=== PATIENT | female | born 1975 | race Caucasian/White ===

== ENCOUNTER → 2016-10-25 | Outpatient (CLI) | payer MEDICARE, OTHER ==
[2016-03-15 15:58] VITALS: BP 122/79
--- NOTE | 2016-10-25 16:31 | KCIC ---
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 History of bunion surgery. Pain and swelling for one month. Patient fell out of a chair with diffuse pain since then. TECHNIQUE: Routine multiplanar sequences are obtained. COMPARISON: None FINDINGS: Surgical screw artifact at the first metatarsal head and distal shaft. This does obscure visualization of the area. However, no superimposed evidence to specifically suggest osteonecrosis. No acute bone marrow edema, acute fracture or bone collapse. The other visualized bones are unremarkable. No significant joint effusion. Lisfranc ligament complex is intact as is tarsometatarsal alignment. No acute tendon rupture. No significant tendon sheath fluid. IMPRESSION: 1. Distal first metatarsal is partially obscured by surgical artifact. However, no specific secondary or indirect findings to suggest first metatarsal head osteonecrosis. 2. No acute findings. Electronically signed by: Jose Acosta MD (10/25/2016 4:28 PM)
== END | disposition home or self-care (01) ==
LOC: KCIC MRI 13:07
PROVIDERS: ATTEND Podiatrist Foot & Ankle Surgery
DX: M87.051 Idiopathic aseptic necrosis of right femur (principal)
CPT/HCPCS: 73718

== ENCOUNTER 2016-12-27 15:24 | Emergency (ER) | payer MEDICARE, MEDICAID ==
[~2016-12-27] VITALS: Ht 167.6 cm; Wt 90.7 kg
--- NOTE | 2016-12-27 16:01 | EKG ---
[facility] [address] [place] [address] Test Date: 2016-12-27 Test Time: 15:45:04 Pat Name: BERTHA GREEN Department: Room: Gender: F [employer]: : 1975 Requested By: KENDALL DOW Order Number: [id number] Reading MD: Mary Brady Measurements Intervals [place] Rate: 71 P: 26 FL: 154 QRS: 13 QRSD: 70 T: 22 QT: 362 QTc: 398 Interpretive Statements SINUS RHYTHM NORMAL ECG Electronically Signed On 12-27-2016 20:51:03 CDT by Mary Brady
[2016-12-27 16:09] LABS: BASO # 0.1 x10^3/uL (0.0-0.2); BASO % 1 % (0-3); EOS % 0 % (0-3); HEMATOCRIT 36.6 % (36.0-47.0); HEMOGLOBIN 11.9 g/dL (12.0-15.5); LYMPH # 1.8 x10^3/uL (1.0-4.8); LYMPH % 16 % (24-48); MEAN CORPUSCULAR HEMOGLOBIN 28 pg (25-35); MEAN CORPUSCULAR HGB CONC 33 g/dL (31-37); MEAN CORPUSCULAR VOLUME 85 fL (79-100); MONO % 3 % (0-9); NEUT % 79 % (31-73); PLATELET COUNT 227 x10^3/uL (140-400); RED BLOOD COUNT 4.33 x10^6/uL (3.50-5.40); WHITE BLOOD COUNT 10.8 x10^3/uL (4.0-11.0)
[2016-12-27 16:21] LABS: CALCIUM 8.2 mg/dL (8.5-10.1); CREATININE 0.7 mg/dL (0.6-1.0); GFR 91.8; POTASSIUM 4.4 mmol/L (3.5-5.1)
[2016-12-27 16:26] LABS: ALBUMIN 3.5 g/dL (3.4-5.0); ALBUMIN/GLOBULIN RATIO 0.9 (1.0-1.7); TOTAL BILIRUBIN 0.3 mg/dL (0.2-1.0); TOTAL PROTEIN 7.2 g/dL (6.4-8.2)
[2016-12-27 16:46] LABS: BILIRUBIN,URINE NEGATIVE (NEG); GLUCOSE,URINE NEGATIVE (NEG); NITRITE,URINE NEGATIVE (NEG); PROTEIN,URINE NEGATIVE (NEG-TRACE); UROBILINOGEN,URINE 0.2 mg/dL (0.2 mg/dL)
[2016-12-27 16:51] LABS: NEG OBC UR NEG; POS OBC UR POS
--- NOTE | 2016-12-27 16:54 | RAD ---
Chest radiograph 12/27/2016 at 1647 hours Indication: Dizziness with nausea and vomiting today Comparison: Chest radiograph 03/15/2016 Technique: Single portable frontal view of the chest is provided. Findings: Cardiomediastinal silhouette is within normal limits. No pleural effusions, pulmonary vascular congestion or pneumothorax. The lungs are clear. Osseous structures are normal. Impression: No acute cardiopulmonary process.
[2016-12-27 16:59] VITALS: BP 121/66
[2016-12-27 17:09] LABS: BACTERIA,URINE FEW /HPF (0-FEW); RBC,URINE 0 /HPF (0-2); WBC,URINE 20-40 /HPF (0-4)
[2016-12-27] MEDS ORDERED: CIPR250T30 PO (17:37)
--- NOTE | 2016-12-27 17:37 | PHYS DOC ---
Past Medical History Past Medical History: Other Additional Past Medical Histor: ptsd Past Surgical History: Other Additional Past Surgical Histo: R gt toe Alcohol Use: None Drug Use: None Adult General Chief Complaint Chief Complaint: DIZZY/LIGHT HEADED HPI HPI Patient is a 41 year old female who presents with dizziness. The patient reports shortly prior to arrival she developed lightheadedness/dizziness without vertigo, nausea, generalized weakness, mild generalized headache not sudden in onset or worst headache of her life. She reports midsternal chest pain. She denies fevers/chills, vision changes, neck stiffness, abdominal pain , vomiting, diarrhea, dysuria. She states she has a problem with her big toe, yesterday received walking boot plus prednisone, indomethacin, & norco from her PCP. Previously healthy. Review of Systems Review of Systems Constitutional: Denies fever or chills Eyes: Denies change in visual acuity HENT: Denies nasal congestion or sore throat Respiratory: Denies cough, reports shortness of breath Cardiovascular: Reports chest pain, denies edema GI: Reports nausea. Denies abdominal pain, vomiting, bloody stools or diarrhea : Denies dysuria or hematuria Musculoskeletal: Denies back pain or joint pain Integument: Denies rash or skin lesions Neurologic: Reports headache, denies focal weakness or sensory changes Allergies Allergies Allergies Coded Allergies Type Severity Reaction Last Updated Verified codeine Allergy Unknown 12/27/16 Yes Physical Exam Physical Exam Constitutional: obese, no acute distress, non-toxic appearance. HENT: Normocephalic, atraumatic, bilateral external ears normal, oropharynx moist, nose normal. Eyes: PERRLA, EOMI, conjunctiva normal, no discharge. Neck: supple, no stridor. no meningismus Cardiovascular: RRR, no murmurs, no edema. Lungs & Thorax: LCTAB, no wheezing, no respiratory distress. Abdomen: soft, nontender, nondistended. Skin: Warm, dry, no erythema, no rash. Back: No tenderness. Extremities: No tenderness, no edema. no calf tenderness or swelling. right great toe normal in appearance without erythema/warmth/swelling. Neurologic: Alert and oriented X 3, CN2-12 grossly intact, symmetric strength/ sensation to UE & LE, no focal deficits noted. Psychologic: Affect normal, judgement normal, mood normal. Current Patient Data Vital Signs Vital Signs Date Time Temp Pulse Resp B/P (MAP) Pulse Ox O2 Delivery O2 Flow Rate FiO2 12/27/16 16:59 68 19 121/66 (84) 97 Room Air 12/27/16 15:30 98.4 98.4 Lab Values Laboratory Tests Test 12/27/16 15:46 12/27/16 16:00 12/27/16 16:40 POC Urine HCG, Qualitative Hcg negative (Negative) White Blood Count 10.8 x10^3/uL (4.0-11.0) Red Blood Count 4.33 x10^6/uL (3.50-5.40) Hemoglobin 11.9 g/dL (12.0-15.5) L Hematocrit 36.6 % (36.0-47.0) Mean Corpuscular Volume 85 fL (79-100) Mean Corpuscular Hemoglobin 28 pg (25-35) Mean Corpuscular Hemoglobin Concent 33 g/dL (31-37) Red Cell Distribution Width 17.0 % (11.5-14.5) H Platelet Count 227 x10^3/uL (140-400) Neutrophils (%) (Auto) 79 % (31-73) H Lymphocytes (%) (Auto) 16 % (24-48) L Monocytes (%) (Auto) 3 % (0-9) Eosinophils (%) (Auto) 0 % (0-3) Basophils (%) (Auto) 1 % (0-3) Neutrophils # (Auto) 8.6 x10^3uL (1.8-7.7) H Lymphocytes # (Auto) 1.8 x10^3/uL (1.0-4.8) Monocytes # (Auto) 0.4 x10^3/uL (0.0-1.1) Eosinophils # (Auto) 0.0 x10^3/uL (0.0-0.7) Basophils # (Auto) 0.1 x10^3/uL (0.0-0.2) Sodium Level 140 mmol/L (136-145) Potassium Level 4.4 mmol/L (3.5-5.1) Chloride Level 104 mmol/L (98-107) Carbon Dioxide Level 25 mmol/L (21-32) Anion Gap 11 (6-14) Blood Urea Nitrogen 15 mg/dL (7-20) Creatinine 0.7 mg/dL (0.6-1.0) Estimated GFR (Cockcroft-Gault) 91.8 BUN/Creatinine Ratio 21 (6-20) H Glucose Level 125 mg/dL (70-99) H Calcium Level 8.2 mg/dL (8.5-10.1) L Total Bilirubin 0.3 mg/dL (0.2-1.0) Aspartate Amino Transferase (AST) 9 U/L (15-37) L Alanine Aminotransferase (ALT) 19 U/L (14-59) Alkaline Phosphatase 77 U/L (46-116) Troponin I Quantitative < 0.017 ng/mL (0.000-0.055) XI-Pyw-W-Type Natriuretic Peptide 156 pg/mL (0-124) H Total Protein 7.2 g/dL (6.4-8.2) Albumin 3.5 g/dL (3.4-5.0) Albumin/Globulin Ratio 0.9 (1.0-1.7) L Urine Collection Type Void Urine Color Yellow Urine Clarity Clear Urine pH 6.0 Urine Specific [place] 1.025 Urine Protein Negative mg/dL (NEG-TRACE) Urine Glucose (UA) Negative mg/dL (NEG) Urine Ketones (Stick) Trace mg/dL (NEG) Urine Blood Negative (NEG) Urine Nitrite Negative (NEG) Urine Bilirubin Negative (NEG) Urine Urobilinogen Dipstick 0.2 mg/dL (0.2 mg/dL) Urine Leukocyte Esterase Moderate (NEG) Urine RBC 0 /HPF (0-2) Urine WBC 20-40 /HPF (0-4) Urine Squamous Epithelial Cells None /LPF Urine Bacteria Few /HPF (0-FEW) Urine Mucus Mod /LPF Urine Test Negative (NEG) Laboratory Tests 12/27/16 16:00 Laboratory Tests 12/27/16 16:00 EKG EKG interpreted by me: Normal sinus rhythm rate 71, no acute ST or T wave changes, normal intervals, no ectopy. [] Radiology/Procedures Radiology/Procedures PROCEDURE: CHEST AP ONLY Chest radiograph 12/27/2016 at 1647 hours Indication: Dizziness with nausea and vomiting today Comparison: Chest radiograph 03/15/2016 Technique: Single portable frontal view of the chest is provided. Findings: Cardiomediastinal silhouette is within normal limits. No pleural effusions, pulmonary vascular congestion or pneumothorax. The lungs are clear. Osseous structures are normal. Impression: No acute cardiopulmonary process. DICTATED and SIGNED BY: IRASEMA BONILLA MD DATE: 12/27/161650[] Course & Med Decision Making Course & Med Decision Making Pertinent Labs and Imaging studies reviewed. (See chart for details) The patient presents with lightheadedness & other symptoms as described above. Well appearing with stable vitals. No focal findings on exam. Gave IV fluids. Obtained labs, EKG, CXR, UA. She has UTI but otherwise no serious findings to explain her symptoms. She has chest pain among other complaints, PERC is 0, low risk for HEART score. REcommend rest, PO hydration, tylenol/ibuprofen for pain or fever, cipro for UTI. Use minimum amount of norco required to control symptoms as this medication could be causing/contributing to dizziness. FOllow up with PCP in 2-3 days. Come back for high fever, severe pain, uncontrolled vomiting, any otherwise worsening condition. Discharged home in stable condition. [] Dragon Disclaimer Dragon Disclaimer This electronic medical record was generated, in whole or in part, using a voice recognition dictation system. Departure Departure Impression: Primary Impression: Urinary tract infection Disposition: HOME, SELF-CARE Condition: STABLE Referrals: JENN DE LA CRUZ MD (PCP) Patient Instructions: Urinary Tract Infection, [id number] Additional Instructions: You were seen in the emergency department today for dizziness. Your tests here were normal except you have a urinary tract infection. Please take the prescribed medication. Drink fluids to stay hydrated. Your new prescriptions from your primary care physician may be contributing to dizziness especially the hydrocodone. Try to take the lowest dose possible to control her symptoms. Follow-up with your doctor in 2-3 days. Return to the emergency department for high fever, severe pain, uncontrolled vomiting, any otherwise worsening condition. Scripts Ciprofloxacin Hcl (CIPRO) 250 Mg Tablet 1 TAB PO BID, #6 TAB Prov: KENDALL DOW MD 12/27/16 KENDALL DOW MD Dec 27, 2016 17:37
== END 2016-12-27 17:43 | disposition home or self-care (01) ==
LOC: ER 15:24
DX: N39.0 Urinary tract infection, site not specified (principal); R51 Headache; R07.2 Precordial pain; Z88.5 Allergy status to narcotic agent
CPT/HCPCS: 36415; 71010; 80053; 81001; 81025; 83880; 84484; 85025; 87086; 93005; 99285-25

== ENCOUNTER → 2019-03-04 | Outpatient (CLI) | payer MEDICARE, MEDICAID ==
[~2019-03-04] MED LIST: CIPR250T30 PO; DIVA500T2 PO; DULO60CA6 PO; GABA-689 PO; IOHEXOL 180 MG/ML 10 ML VIAL. ONE; TRAZ-86 PO; methylPREDNISolone ACETATE 40 MG/ML VIAL. ONE; methylPREDNISolone ACETATE 80 MG/ML VIAL. ONE
--- NOTE | 2019-03-04 13:47 | PAIN ---
DATE OF SERVICE: 03/04/2019 INITIAL CONSULTATION FOR PAIN CLINIC CHIEF COMPLAINT: Low back and left lower extremity pain. HISTORY OF PRESENT ILLNESS: This is a 43-year-old female who presents with history of pain in the low back, left lower extremity for many years, worse over the next 6 months or so, not a result of any specific injury or action she is aware of but it is a constant pain, it is now radiating in the low back or left lower extremity, anterior thigh, anterior medial thigh, medial lower leg to the ankle. The patient reports it is worse with walking, standing, changing positions, better with sitting or lying down but it has been awakening her from sleep occasionally, not every night. The patient is walking with a cane, she holds in her right hand and has it with her today. The patient reports she has tried physical therapy in the past, which helped to some extent but nothing recently. No new physical therapy treatments, but she is doing some stretching and strengthening exercises on her own. She has taken Tylenol with Codeine which has decreased the pain by moderate extent and has helpful in the past, but not helping as well at this time. The patient reports a disability rating from 0-10, 10 being the worst, 9 with family home responsibilities, recreation, occupation, self-care activities, 7 with social activity, 8 with sexual behavior, 8 with life support activities. The patient did have MRI scan of the lumbar spine showing L3-L4 left foraminal disk protrusion extending 0.4 cm posteriorly with associated a small annular fissure resulting in moderate left foraminal narrowing and superior displacement of the left L3 nerve root with moderate facet arthropathy. L4-L5 shows mild diffuse bulging disk, moderate facet arthropathy as well with mild foraminal narrowing bilaterally. PAST MEDICAL HISTORY: Significant for obesity and recurrent radicular pain in the leg. PAST SURGICAL HISTORY: No previous surgeries. CURRENT MEDICATIONS: Include Cymbalta, gabapentin, Depakote and trazodone. ALLERGIES: THE PATIENT IS ALLERGIC TO TYLENOL WITH CODEINE, ALTHOUGH SHE IS TAKING FAIRLY RECENTLY. FAMILY HISTORY: Not significant for any major medical problems or conditions that she lists. SOCIAL HISTORY: The patient does not drink alcohol, does not smoke, does not use any illegal, illicit or recreational drugs. She is , lives with her spouse, has no children, living at home, lives locally in [place], [place]. REVIEW OF SYSTEMS: The patient's review of systems is positive for those items mentioned in history of present illness. All systems reviewed and otherwise negative. It is complete, full and well documented on the patient's chart. PHYSICAL EXAMINATION: VITAL SIGNS: The patient's blood pressure is 110/72, pulse is 88, respirations 18, temperature 98.9 degrees Fahrenheit, height is 5 feet 6 inches and weight is 288 pounds. GENERAL: The patient is awake, alert, oriented, appropriate, very pleasant demeanor. HEENT: Head shows normocephalic, atraumatic. Extraocular movements are intact and symmetrical. Oral cavity: Mucous membranes are moist and pink. Dentition is intact. NECK: Shows anterior throat supple without palpable lymphadenopathy noted. Swallow reflex is symmetrical. CHEST: Shows normal on inspection. Breath sounds clear to auscultation bilaterally. HEART: Shows S1, S2 clear. No murmurs auscultated. ABDOMEN: Soft, nontender, nondistended. No palpable organomegaly is noted. No rebound or guarding demonstrated. BACK: Shows spine grossly in the midline. Normal-appearing thoracic kyphosis and minor flattening of lumbar lordotic curvature. Lumbar paraspinous muscle shows symmetrical on inspection, on palpation shows some moderate tenderness diffusely bilaterally, diffusely without radiation. The patient's lumbar paraspinous muscle shows symmetrical on inspection, with palpation shows some moderate tenderness throughout the upper, middle and lower distribution of paraspinous muscles, but only diffusely without trigger points and without asymmetry. The patient has good rotational motion of lumbar spine, both laterally greater than 10 degrees right and left as well as extension greater than 10 degrees, forward flexion 45 degrees without significant increase in pain, no tenderness over the spinous processes, sacrum or sacroiliac regions. EXTREMITIES: The patient's lower extremities show deep tendon reflexes 1+ in the patellar and tendo-calcaneus tendons. Motor exam is approximately 4 on a scale of 5, but symmetrical with dorsiflexion, extension, quadriceps and hamstring flexion. Peripheral pulses are 1+ posterior tibia. No peripheral edema is noted. Straight leg raise noted to be negative for reproduction of radicular symptoms bilaterally. Gaenslen's and Rodney's maneuvers are negative bilaterally as well. The patient is able to stand, stand on her toes without difficulty or significant loss of balance. She is walking with a cane in her right hand, however and does have a significant limp favoring the left lower extremity with ambulation. SKIN: The patient's skin shows warm and dry, good turgor. No edema. No sores, rashes or bruising throughout. IMPRESSION: 1. This is a 43-year-old female with long history of increasing pain in low back, into the left lower extremity, worse over the past 6 months. 2. MRI scan of lumbar spine as noted. 3. Obesity. PLAN: Options were discussed with the patient including conservative medical managements, physical therapies and interventional techniques. She would like to pursue interventional techniques. We discussed a lumbar epidural steroid injection using descriptions as well as anatomical models to describe the procedure. Risks were then discussed including, but not limited to bleeding, infection, possibility of epidural hematoma, subsequent neurologic compromise, dural puncture, headaches, spinal cord and/or nerve damage, side effects of steroid medication and poor results regarding pain control. The patient understands and wished to proceed. The patient will return to clinic in approximately 2 weeks for followup. She was counseled on return appointment, activity level and side effects to be aware of. DIAGNOSES: Lumbar radiculopathy with lumbar degenerative disk disease and lumbar herniated disk. PROCEDURE: Lumbar epidural steroid injection, translaminar approach L3-L4 level using C-arm fluoroscopic guidance under sterile prep and drape using local anesthetic. MEDICATION INJECTED: A total of 120 mg Depo-Medrol plus 10 mL of preservative-free normal saline and 2 mL of contrast. CONDITION AT DISCHARGE: Stable. The patient tolerated the procedure well, had no complications. DALY VERA MD DR: DALLAS/linda JOB#: [id number] / [id number] JENN Phillips MD
== END ==
LOC: PNCL 10:04
PROVIDERS: ATTEND Anesthesiology
DX: M51.16 Intervertebral disc disorders with radiculopathy, lumbar region (principal); E66.9 Obesity, unspecified; Z88.5 Allergy status to narcotic agent; Z88.8 Allergy status to other drugs, medicaments and biological substances
CPT/HCPCS: 62323; J1030; J1040; Q9965

== ENCOUNTER → 2020-02-19 | Outpatient (CLI) | payer MEDICARE, MEDICAID ==
[~2020-02-19] MED LIST changes: +BUPIVACAINE MPF 0.25% 10 ML VIAL. ONE; +TRAZ-123 PO; -TRAZ-86 PO
--- NOTE | 2020-02-19 14:15 | PDOC ---
Progress Note - Pain Clinic Date of Service: DOS: DATE: 02/19/20 TIME: 14:11 Diagnosis: Dx: Lumbar degenerative disease with lumbar herniated disc and lumbar and lumbosacral spondylosis History or Present Illness: HPI: 44 female returns follow-up status post lumbar epidural injection x1 last seen March 04, 2019 P patient reports no significant decrease in pain in her low back bilateral lower extremity pain now the pain is more focused in the back itself with less radiation to the lower extremities has some occasionally p atient recently seen her neurosurgeon who is recommending conservative therapies had a new MRI scan lumbar spine showing some degenerative disc disease similar to February 04, 2019 exam with L3-4 L4-5 and L5-S1 degenerative changes mild foraminal disc bulging as well at the L3-4 level. Patient reports to significant pain in the low back worse with standing walking changing position especially getting up from a seated position bending and stooping especially extension of the lumbar spine and right and left lateral rotation essentially equal and pain bilaterally. Patient rates her pain is 8 on scale 10 is worst average and least over the past week it is an 8 today patient scribes it aching sharp tight tingling burning coming more constant with time. Patient reports no new motor or sensory deficits no bowel or bladder incontinence no recent injury. Physical Exam: VS: Blood pressure is 131/91 pulse 103 respirations 18 temperature is 96.6 F height is 5 feet 6 inches weight is 302 pounds PE: PHYSICAL EXAMINATION: GENERAL: The patient is awake, alert, oriented, appropriate, very pleasant demeanor HEENT: Shows normocephalic, atraumatic. Extraocular movements are intact and symmetrical. Oral cavity: Mucous membranes moist and pink NECK: Shows anterior throat supple without palpable lymphadenopathy noted. Swallow reflex symmetrical. CHEST: Shows normal on inspection. Breath sounds are clear bilaterally, no rales rhonchi or wheezes auscultated. HEART: Shows S1, S2 clear. No murmurs auscultated. ABDOMEN: Soft, nontender, nondistended, obese. No palpable organomegaly is noted. No rebound or guarding demonstrated. BACK: Shows spine grossly in the midline. Normal-appearing cervical lordotic curvature. There is slightly increased thoracic kyphosis, some minor flattening of the lumbar lordotic curvature. Lumbar spine shows good rotation of motion both laterally as well as extension flexion with some moderate tenderness with extension but better with forward flexion right left lateral rotation is moderately tender greater than 10 degrees and equal without radiation. Lumbar paraspinous muscles show symmetrical on inspection, on palpation shows some moderate tenderness diffusely throughout the upper, middle and lower distribution of the paraspinous muscles bilaterally, but without specific trigger points, without radiation of pain. No tenderness over the spinous processes, sacrum or sacroiliac regions. EXTREMITIES: Lower extremities show deep tendon reflexes 1+ in the patellar and tendo calcaneus tendons. Motor exam is 4 on a scale of 5 with right dorsiflexion, extension, quadriceps and hamstring flexion and 4/5 on the left. Peripheral pulses are 1+ posterior tibial. No peripheral edema is noted bilaterally. Lower extremities are warm and dry to touch, equal in color and appearance. SKIN: Shows warm and dry, good turgor. No edema. No sores, rashes or bruising throughout. Procedure: Procedure: Options were discussed with the patient. Patient will chart was reviewed as her current medication regimen updated current review of systems updated today as well. We will proceed with bilateral facet joint injections today in the L4-5 and L5-S1 distribution with fluoroscopic guidance. Risks were discussed including but not limited to: Bleeding, infection, possibility of epidural hematoma and subsequent neurological compromise, dural puncture, headaches, spinal cord and/or nerve damage, side effects of steroid medication, and poor results regarding pain control. Patient understands wished to proceed. Patient will return to the clinic in approximate 2 weeks for follow-up was counseled as return appointment activity level and side effects to be aware of. Medication Injected: Med Injected: Under sterile prep and drape using C-arm fluoroscopic guidance AP and lateral and oblique views, bilateral L4-5 and L5-S1 facet joint injections, medications injected: 120 mg Depo-Medrol +4 cc 0.25% bupivacaine +2 cc contrast. Condition at discharge stable patient tolerated the procedure well and no complications. Condition at Discharge: Condition at Discharge: Condition at discharge is stable patient tolerated procedure well had no com plications. DALY VERA MD Feb 19, 2020 14:15
== END ==
LOC: PNCL 13:16
PROVIDERS: ATTEND Anesthesiology
DX: M47.816 Spondylosis without myelopathy or radiculopathy, lumbar region (principal); M47.817 Spondylosis without myelopathy or radiculopathy, lumbosacral region; M51.36 Other intervertebral disc degeneration, lumbar region; Z88.5 Allergy status to narcotic agent; Z79.899 Other long term (current) drug therapy
CPT/HCPCS: 64635; 64636; J1030; J1040; J3490; Q9965

== ENCOUNTER → 2020-03-04 | Outpatient (CLI) | payer MEDICARE, MEDICAID ==
[~2020-03-04] MED LIST changes: -BUPIVACAINE MPF 0.25% 10 ML VIAL. ONE
--- NOTE | 2020-03-04 14:27 | PDOC ---
Progress Note - Pain Clinic Date of Service: DOS: DATE: 03/04/20 TIME: 14:24 Diagnosis: Dx: Lumbar radiculopathy with lumbar degenerative disc disease lumbar herniated disc and lumbar spondylosis History or Present Illness: HPI: 44-year-old female returns follow-up status post bilateral facet joint injections L4-5 and L5-S1. Patient reports no significant decrease in pain axial pain is increased for a few days after the procedure never did decrease patient reports the pain now is radiating to both lower extremities posterior gluteus posterior lateral thigh lateral anterior thigh anteromedial thigh calves and into the ankles bilaterally slightly worse on the right than left are present bilaterally. Patient reports been like this for about a week and half grades reports the pain is an 8 on a scale of 10 at all times average the least and is worst is an 8 today. Patient scribes pain as tingling and burning aching sharp shooting in the lower extremities becoming more constant worse with walking standing changing positions better with sitting or lying down but does awaken her from sleep at night several times throughout the night. Patient reports no new motor or sensory deficits no new bowel or bladder incontinence or other complaints. Physical Exam: VS: Blood pressure is 138/78 pulse 78 respirations are 18 temperature 98.3 F height is 5 foot 6 inches weight is 300 pounds PE: PHYSICAL EXAMINATION: GENERAL: The patient is awake, alert, oriented, appropriate, very pleasant demeanor HEENT: Shows normocephalic, atraumatic. Extraocular movements are intact and symmetrical. Oral cavity: Mucous membranes moist and pink. NECK: Shows anterior throat supple without palpable lymphadenopathy noted. Swallow reflex symmetrical. CHEST: Shows normal on inspection. Breath sounds are clear bilaterally. HEART: Shows S1, S2 clear. No murmurs auscultated. ABDOMEN: Soft, nontender, nondistended, obese. No palpable organomegaly is noted. No rebound or guarding demonstrated. BACK: Shows spine grossly in the midline. Normal-appearing cervical lordotic curvature. There is slightly increased thoracic kyphosis, some minor flattening of the lumbar lordotic curvature. Lumbar paraspinous muscles show symmetrical on inspection, on palpation shows some moderate tenderness diffusely throughout the upper, middle and lower distribution of the paraspinous muscles bilaterally, without specific trigger points, without radiation of pain. The patient has good rotational motion of the lumbar spine, with only moderate pain with extension but not with forward flexion right lateral rotation show some mild tenderness greater than 10 degrees bilaterally. No tenderness over the spinous processes, sacrum or sacroiliac regions. EXTREMITIES: Lower extremities show deep tendon reflexes 1+ in the patellar and tendo calcaneus tendons. Motor exam is 4 on a scale of 5 with right dorsiflexio n, extension, quadriceps and hamstring flexion and 4/5 on the left. Peripheral pulses are 1+ posterior tibial. No peripheral edema is noted bilaterally. Lower extremities are warm and dry to touch, equal in color and appearance. SKIN: Shows warm and dry, good turgor. No edema. No sores, rashes or bruising throughout. Procedure: Procedure: Options were discussed with the patient. Patient will chart reviews her current medication regimen updated current review of systems updated today as well. We will proceed with a lumbar epidural steroid injection today with fluoroscopic guidance. Risks were discussed including but not limited to: Bleeding, infection, possibility of epidural hematoma and subsequent neurological comp romise, dural puncture, headaches, spinal cord and/or nerve damage, side effects of steroid medication, and poor results regarding pain control. Patient understands wished to proceed. Patient will return to clinic in approximate 2 weeks for follow-up was counseled as return appointment activity level and side effects to be aware of. Medication Injected: Med Injected: Procedure is lumbar epidural steroid injection under local anesthetic using sterile prep and drape at the L4-5 level using C-arm fluoroscopic guidance in both AP and lateral views medications injected is 120 mg Depo-Medrol + 10 mL preservative-free normal saline and 2 mL contrast- condition at discharge is stable patient tolerated procedure well had no complications. Condition at Discharge: Condition at Discharge: Condition at discharge is stable patient tolerated procedure well and had no complications. DALY VERA MD Mar 04, 2020 14:27
== END ==
LOC: PNCL 13:18
PROVIDERS: ATTEND Anesthesiology
DX: M51.16 Intervertebral disc disorders with radiculopathy, lumbar region (principal); M47.26 Other spondylosis with radiculopathy, lumbar region; M47.27 Other spondylosis with radiculopathy, lumbosacral region; Z88.5 Allergy status to narcotic agent; Z79.899 Other long term (current) drug therapy
CPT/HCPCS: 62323; J1030; J1040; Q9965

== ENCOUNTER → 2021-01-03 | Outpatient (CLI) | payer MEDICARE, MEDICAID ==
[~2021-01-03] MED LIST changes: -IOHEXOL 180 MG/ML 10 ML VIAL. ONE; +QUET50TA5 PO; -methylPREDNISolone ACETATE 40 MG/ML VIAL. ONE; -methylPREDNISolone ACETATE 80 MG/ML VIAL. ONE
--- NOTE | 2021-01-03 14:37 | PDOC ---
Progress Note - Pain Clinic Date of Service: DOS: DATE: 01/03/21 TIME: 14:33 Diagnosis: Dx: Lumbar radiculopathy with lumbar degenerative disc disease lumbar herniated disc and lumbar and lumbosacral spondylosis History or Present Illness: HPI: 45-year-old female returns for follow-up status post lumbar epidural steroid injection as well as bilateral lumbar facet injections last seen March 04 two twenty. Patient reports that the pain was reduced but only for few days and the pain came right back where it was. We had tried lumbar facet injections on the recommendation of her neurosurgeon prior to that she did have some facet syndrome and spondylosis however the pain was not reduced much more than a day as well patient reports her pain is a ten on scale ten is worse over the past week nine on average eight its least and is an eight today patient was aching sharp shooting tingling across the low back also some pain in the lower extremities at this time bilaterally posterior gluteus posterior thighs mainly in anterior thighs anteromedial thighs medial lower legs just below the knees patient reports is worse with walking standing changing positions better with sitting or laying down generally does not awaken her from sleep at night but when she gets up in the morning pain is right back what was patient reports is getting more noticeable with fatigability the lower extremities bilaterally but no overt motor loss no bowel or bladder incontinence. Patient not had any recent physical therapy any recent diagnostic studies at this time. Physical Exam: VS: Blood pressure is 134/85 pulse one oh seven respirations eighteen with 99.1 F height 5 feet 6 inches weight is 305 pounds PE: PHYSICAL EXAMINATION: GENERAL: The patient is awake, alert, oriented, appropriate, very pleasant demeanor HEENT: Shows normocephalic, atraumatic. Extraocular movements are intact and symmetrical. Oral cavity: Mucous membranes moist and pink. Dentition is intact. NECK: Shows anterior throat supple without palpable lymphadenopathy noted. Swallow reflex symmetrical. CHEST: Shows normal on inspection. Breath sounds are clear bilaterally, distant but without rales or rhonchi. HEART: Shows S1, S2 clear. No murmurs auscultated. ABDOMEN: Soft, nontender, nondistended, obese. No palpable organomegaly is noted. BACK: Shows spine grossly in the midline. Normal-appearing cervical lordotic curvature. There is slightly increased thoracic kyphosis, some minor flattening of the lumbar lordotic curvature. Lumbar paraspinous muscles show symmetrical on inspection, on palpation shows some moderate tenderness diffusely throughout the upper, middle and lower distribution of the paraspinous muscles without specific trigger points, without radiation of pain. The patient has good rotational motion of the lumbar spine, both laterally as well as extension and flexion with moderate tenderness with extension and axial loading lumbar spine but better with forward flexion 45 degrees also right and left lateral rotation some mild tenderness at far right lateral rotation bilaterally but without radiation. No tenderness over the spinous processes, sacrum or sacroiliac regions. EXTREMITIES: Lower extremities show deep tendon reflexes 1+ in the patellar and tendo calcaneus tendons. Motor exam is four on a scale of 5 with right dorsiflexion, extension, quadriceps and hamstring flexion and four/5 on the left. Peripheral pulses are 1+ posterior tibial. No peripheral edema is noted bilaterally. Lower extremities are warm and dry to touch, equal in color and appearance. SKIN: Shows warm and dry, good turgor. No edema. No sores, rashes or bruising throughout. Procedure: Procedure: Options were discussed with the patient. Patient's old chart was reviewed as her current medication regimen updated current review of systems updated today as well. We will check new MRI scan, as it has been a year since her most recent scan with a herniated L3-4 discs demonstrated. Once obtained we will formulate a plan potentially water physical therapy and traction as we did discuss this briefly today. If significant changes were found may refer for neurosurgical evaluation as well patient is aware and agrees with the current plan. Medication Injected: Med Injected: None Condition at Discharge: Condition at Discharge: Condition at discharge is stable. DALY VERA MD Jan 03, 2021 14:37
== END | disposition home or self-care (01) ==
LOC: PNCL 14:06
PROVIDERS: ATTEND Anesthesiology
DX: M51.16 Intervertebral disc disorders with radiculopathy, lumbar region (principal); M47.26 Other spondylosis with radiculopathy, lumbar region; Z79.899 Other long term (current) drug therapy; Z88.5 Allergy status to narcotic agent
CPT/HCPCS: 99212; G0463

== ENCOUNTER → 2021-01-26 | Outpatient (CLI) | payer MEDICARE, MEDICAID ==
--- NOTE | 2021-01-26 14:43 | NUR ---
Pt called States shots aren't working wants MRI results and options . discussed mri and physical therapy. pt states she wants to see a neuro surgeon . Dr Hanley spoke with patient went over results again. offered physical therapy . Pt wants to see Dr Kidd . Dr Mitchell office notifyed
--- NOTE | 2021-01-26 16:22 | PDOC ---
Progress Note - Pain Clinic Date of Service: DOS: DATE: 01/26/21 TIME: 16:19 Diagnosis: Dx: Telemedicine visits via telephone with patient identity verified with full name and date of , total time spent: 12 minutes Lumbar radiculopathy with lumbar degenerative disc disease and lumbar herniated disc History or Present Illness: HPI: 45-year-old female follow-up after most recent visit January 03, 2021 we discussed MRI scan and next steps patient had showed interest in physical therapy with water therapy we also discussed potential neurosurgical evaluation patient has rethought this and would like to pursue neurosurgical evaluation we discussed the physical therapy with water therapy this may be more beneficial for her but indeed also guided to get another opinion after from surgical standpoint. Patient would like to pursue this and we will make those arrangements. Patient reports still significant pain in the low back and bilateral lower extremities radiating mostly in the posterior gluteus lateral thigh and anterior thigh aspect following L3-4 dermatomal distribution. Patient reports no loss of motor function no bowel or bladder incontinence and we did discuss that once again the MRI scan findings with her and will make arrangements for neurosurgical evaluation. Physical Exam: PE: DALY VERA MD Jan 26, 2021 16:22
== END ==
LOC: PNCL 14:19
PROVIDERS: ATTEND Anesthesiology
DX: M51.16 Intervertebral disc disorders with radiculopathy, lumbar region (principal)
CPT/HCPCS: G0463

== ENCOUNTER → 2021-02-11 | Outpatient (CLI) | payer MEDICARE, MEDICAID ==
[~2021-02-11] MED LIST changes: +ATOR20TA58 PO; +BUSP10TA PO; -DULO60CA6 PO; +DULO60CA7 PO; +PRAZ1CAP2 PO
--- NOTE | 2021-02-11 12:38 | PDOC ---
Progress Note - Pain Clinic Date of Service: DOS: DATE: 02/11/21 TIME: 12:35 Diagnosis: Dx: Lumbar radiculopathy with lumbar degenerative disease lumbar herniated disc and lumbar spondylosis History or Present Illness: HPI: 45-year-old female returns for follow-up status post lumbar epidural steroid injections as well as lumbar facet injections and water and physical therapy. Patient had been referred to neurosurgical evaluation which has been performed now and returns with recommendation of spinal cord stimulator trial as no surgical indications at this time. Patient reports her pain is still in the low back bilateral lower extremities posterior gluteus posterior lateral thigh anterior thigh medial thigh medial lower legs right essentially equal to left rate is a 9 on scale 10 is worse over the past week 8 on average 8 its least is an 8 today. Patient reports is worse with walking standing better with sitting or lying down but is waking her from sleep 5-3 times a night. Patient reports no loss of motor function but significant fatigability of both lower extremities with ambulation. Patient reports no bowel or bladder incontinence. Physical Exam: VS: Blood pressure 134/86 pulse 101 respiration 16 temperature 98.1 F weight is 200 pounds PE: PHYSICAL EXAMINATION: GENERAL: The patient is awake, alert, oriented, appropriate, very pleasant in d emeanor HEENT: Shows normocephalic, atraumatic. Extraocular movements are intact and symmetrical. Oral cavity: Mucous membranes moist and pink. Dentition is intact. NECK: Shows anterior throat supple without palpable lymphadenopathy noted. Swallow reflex symmetrical. CHEST: Shows normal on inspection. Breath sounds are clear bilaterally, distant but no rales rhonchi wheezes auscultated. HEART: Shows S1, S2 clear. No murmurs auscultated. ABDOMEN: Soft, nontender, nondistended, obese. No palpable organomegaly is noted. BACK: Shows spine grossly in the midline. Normal-appearing cervical lordotic curvature. There is slightly increased thoracic kyphosis, some minor flattening of the lumbar lordotic curvature. Lumbar paraspinous muscles show symmetrical on inspection, on palpation shows some moderate tenderness diffusely throughout the upper, middle and lower distribution of the paraspinous muscles, but without specific trigger points, without radiation of pain. The patient has good rotational motion of the lumbar spine, both laterally as well as extension and flexion without significant difficulty. No tenderness over the spinous processes, sacrum or sacroiliac regions. EXTREMITIES: Lower extremities show deep tendon reflexes 1+ in the patellar and tendo calcaneus tendons. Motor exam is 4 on a scale of 5 with right dorsiflexion, extension, quadriceps and hamstring flexion and 4/5 on the left. Peripheral pulses are 1+ posterior tibial. No peripheral edema is noted bilaterally. Lower extremities are warm and dry. SKIN: Shows warm and dry, good turgor. No edema. No sores, rashes or bruising throughout. Procedure: Procedure: Options discussed with patient. Patient chart reviews her current medication regimen updated current view of systems updated today as well. We will preauthorize patient for spinal cord stimulator trial placement with psycho logical evaluation pending as well. Patient was given information regarding the stimulator and the trial process as well to review on her own. Medication Injected: Med Injected: None Condition at Discharge: Condition at Discharge: Condition at discharge is stable. DALY VERA MD Feb 11, 2021 12:38
== END | disposition home or self-care (01) ==
LOC: PNCL 12:05
PROVIDERS: ATTEND Anesthesiology
DX: M51.16 Intervertebral disc disorders with radiculopathy, lumbar region (principal); M47.26 Other spondylosis with radiculopathy, lumbar region; Z79.899 Other long term (current) drug therapy; Z91.040 Latex allergy status; Z88.5 Allergy status to narcotic agent
CPT/HCPCS: 99212; G0463

== ENCOUNTER → 2021-03-29 | Outpatient (CLI) | payer MEDICARE, MEDICAID ==
[~2021-03-29] MED LIST changes: +HYDR-2765 PO; +LIDOCAINE 1% PF 2 ML VIAL. ONE
--- NOTE | 2021-03-29 15:44 | PDOC4 ---
Procedure Note: ICD 10 Code: ICD 10 Code: M54.16 M51.36 7.816 Procedure Note: Patient was consented for spinal cord stimulator temporary leads placement x2 with fluoroscopic guidance. Risks were discussed including but not limited to: Bleeding, infection, possibility of epidural hematoma and subsequent neurologic al compromise, dural puncture, headaches, spinal cord and/or nerve damage, and poor results regarding pain control. Patient understands and wished to proceed. Under sterile prep and drape patient in prone position using C-arm fluoroscopic guidance patient's lumbar spine was identified and vertebral levels were counted did put external marker on the T8 level. This time the lumbar spine was revisualized and using 1% lidocaine, the area over the L4-5 level was anesthetized and then using a 14-gauge mytheresa.comtead needle with stylette was entered to the epidural space at the L3-4 level using a paramedian approach to the right with preservative-free normal saline wtiz-gq-mlzqhulkiz technique aspiration was noted to be negative and using direct fluoroscopy visualization spinal cord stimulator lead was then advanced without significant resistance in the midline and confirmed posterior with both AP and lateral views, and advanced to the superior endplate of the T8 vertebral level superimposed with the superior spinal cord stimulator electrode lead. Fluoroscopy was used in a lateral view to verify posterior placement in the epidural space at this point as well. At this time a second lead was then introduced in similar fashion at the L4-5 level and inserted and in the epidural space at the L3-4 level once again with preservative-free normal saline ocoi-qi-tpkdcyqcbn technique. Aspiration was again noted to be negative and using direct visualization with fluoroscopy second lumbar spinal cord stimulator lead was advanced without significant resistance in the midline with the superior electrode superimposed over the superior endplate of the T8 vertebral body. Lateral visualization was again confirmed with placement of the stimulator in the posterior epidural space. At this time the needles and stylette were removed with intermittent fluoroscopic visualization maintaining that the leads had not moved during this process and this was confirmed. This time 1% lidocaine was used to anesthetize the skin next to the insertion sites of the stimulator wires and using a 2-0 silk were then sutured in place. Mastisol and Tegaderm was then applied as well as parul nforcing tape and gauze. Patient was transferred to the recovery area under his own power walking without difficulty and had no immediate complications from the procedure. Stimulation was then carried out with [employer] representatives. Patient will return to the clinic in approximately 1 week for removal of the temporary leads and reassessment of the patient's pain level. DALY VERA MD Mar 29, 2021 15:44
--- NOTE | 2021-03-29 15:44 | PDOC ---
Progress Note - Pain Clinic Date of Service: DOS: DATE: 03/29/21 TIME: 15:40 Diagnosis: Dx: Lumbar radiculopathy lumbar degenerative disease lumbar herniated disc and lumbar and lumbosacral spondylosis History or Present Illness: HPI: 45-year-old female returns for follow-up status post lumbar epidural steroid injection as well as facet joint injections and without significant long-term relief still significant pain low back and now radiating the bilateral lower extremities again in a radicular fashion, for spinal cord stimulator temporary leads placement today. Patient reports still significant pain in the low back bilateral lower extremities posterior gluteus posterior thigh lateral thighs anterior thighs anterior medial thighs medial lower legs posterior lower legs into the feet bilaterally. Patient reports her pain is a 9 on scale 10 is worst average and 8 at its least is a 9 today patient scribes aching sharp to the back shooting the leg tingling can be constant as well with activity. Reports continues waking from sleep at least every 5-6 hours. Patient reports no bowel or bladder incontinence no new motor or sensory deficits but significant fatigability the bilateral lower extremities. Physical Exam: VS: Blood pressure is 134/84 pulse 101 respirations 18 temperature 98.2 F height is 5 feet 6 inches weight is 308 pounds. PE: PHYSICAL EXAMINATION: GENERAL: The patient is awake, alert, oriented, appropriate, very pleasant in demeanor, patient accompanied by her mother. HEENT: Shows normocephalic, atraumatic. Extraocular movements are intact and symmetrical. Oral cavity: Mucous membranes moist and pink. Dentition is intact. NECK: Shows anterior throat supple without palpable lymphadenopathy noted. Swallow reflex symmetrical. CHEST: Shows normal on inspection. Breath sounds are clear bilaterally, distant no rales or rhonchi. HEART: Shows S1, S2 clear. No murmurs auscultated. ABDOMEN: Soft, nontender, nondistended, obese. No palpable organomegaly is noted. BACK: Shows spine grossly in the midline. Normal-appearing cervical lordotic curvature. There is slightly increased thoracic kyphosis, some minor flattening of the lumbar lordotic curvature. Lumbar paraspinous muscles show symmetrical on inspection, on palpation shows some moderate tenderness diffusely throughout the upper, middle and lower distribution of the paraspinous muscles without specific trigger points, without radiation of pain. The patient has good rotational motion of the lumbar spine, both laterally as well as extension and flexion without significant difficulty. No tenderness over the spinous processes, sacrum or sacroiliac regions. EXTREMITIES: Lower extremities show deep tendon reflexes 1+ in the patellar and tendo calcaneus tendons. Motor exam is 4 on a scale of 5 with right dorsiflexion, extension, quadriceps and hamstring flexion and 4/5 on the left. Peripheral pulses are [] posterior tibial. No peripheral edema is noted bilaterally. Lower extremities are warm and dry to touch, equal in color and appearance. SKIN: Shows warm and dry, good turgor. No edema. No sores, rashes or bruising throughout. Procedure: Procedure: Options were discussed with the patient. Patient chart reviewed as her current medication regimen updated current review of systems updated today as well. We will proceed with spinal cord stimulator temporary leads placement x2. Risks were discussed including but not limited to: Bleeding, infection, possibility of epidural hematoma and subsequent neurological compromise, dural puncture, headaches, spinal cord and/or nerve damage, and poor results regarding pain control. Patient understands and wished to proceed. Patient will return to clinic in approximate 1 week for removal of temporary spinal cord stimulator leads and reassessment of patient's pain at that time. Medication Injected: Med Injected: Under sterile prep and drape patient in prone position using C-arm fluoroscopic guidance patient's lumbar spine was identified and vertebral levels were counted did put external marker on the T8 level. This time the lumbar spine was revisualized and using 1% lidocaine, the area over the L4-5 level was anesthetized and then using a 14-gauge diaDexustead needle with stylette was entered to the epidural space at the L3-4 level using a paramedian approach to the right with preservative-free normal saline mfxc-zu-lrkagywana technique aspiration was noted to be negative and using direct fluoroscopy visualization spinal cord stimulator lead was then advanced without significant resistance in the midline and confirmed posterior with both AP and lateral views, and advanced to the superior endplate of the T8 vertebral level superimposed with the superior spinal cord stimulator electrode lead. Fluoroscopy was used in a lateral view to verify posterior placement in the epidural space at this point as well. At this time a second lead was then introduced in similar fashion at the L4-5 level and inserted and in the epidural space at the L3-4 level once again with preservative-free normal saline xpzy-uo-jltvglkpgc technique. Aspiration was again noted to be negative and using direct visualization with fluoroscopy second lumbar spinal cord stimulator lead was advanced without significant resistance in the midline with the superior electrode superimposed over the superior endplate of the T8 vertebral body. Lateral visualization was again confirmed with placement of the stimulator in the posterior epidural space. At this time the needles and stylette were removed with intermittent fluoroscopic visualization maintaining that the leads had not moved during this process and this was confirmed. This time 1% lidocaine was used to anesthetize the skin next to the insertion sites of the stimulator wires and using a 2-0 silk were then sutured in place. Mastisol and Tegaderm was then applied as well as reinforcing tape and gauze. Patient was transferred to the recovery area under his own power walking without difficulty and had no immediate complications from the procedure. Stimulation was then carried out with [facility] representatives. Patient will return to the clinic in approximately 1 week for removal of the temporary leads and reassessment of the patient's pain level. Condition at Discharge: Condition at Discharge: Condition at discharge stable, patient Marisa the procedure well and had no complications. DALY VERA MD Mar 29, 2021 15:44
== END | disposition home or self-care (01) ==
LOC: PNCL 13:54
PROVIDERS: ATTEND Anesthesiology
DX: M51.16 Intervertebral disc disorders with radiculopathy, lumbar region (principal); M47.26 Other spondylosis with radiculopathy, lumbar region; Z79.899 Other long term (current) drug therapy; Z88.5 Allergy status to narcotic agent; Z91.040 Latex allergy status
CPT/HCPCS: 63650; C1897; J3490

== ENCOUNTER → 2021-04-05 | Outpatient (CLI) | payer MEDICARE, MEDICAID ==
[~2021-04-05] MED LIST changes: -LIDOCAINE 1% PF 2 ML VIAL. ONE
--- NOTE | 2021-04-05 13:30 | PDOC ---
Progress Note - Pain Clinic Date of Service: DOS: DATE: 04/05/21 TIME: 13:27 Diagnosis: Dx: Lumbar radiculopathy with lumbar degenerative disease lumbar herniated disc and lumbar and lumbosacral spondylosis History or Present Illness: HPI: 45-year-old female returns status post temporary spinal cord stimulator lead placement 1 week ago. Patient reports 90+ percent decrease in pain for the week while she had the stimulator leads and she was increase in activities greater ease and comfort walking greater distances sleeping better try with greater ease patient reports she is very pleased with the results rates her pain is a 5 on scale 10 is worst over the past week 5 on average 5 its least is a 5 today patient reports is aching and sharp in the back once the procedural pain was resolved after few days the back and legs is much improved again 90+ percent reduction. Patient reports no new motor or sensory deficits no bowel or bladder incontinence. Physical Exam: VS: Blood pressure is 143/90 pulse 101 respirations 18 temperature 98.5 F PE: PHYSICAL EXAMINATION: GENERAL: The patient is awake, alert, oriented, appropriate, very pleasant in demeanor HEENT: Shows normocephalic, atraumatic. Extraocular movements are intact and symmetrical. Oral cavity: Mucous membranes moist and pink. Dentition is intact. NECK: Shows anterior throat supple without palpable lymphadenopathy noted. Swallow reflex symmetrical. CHEST: Shows normal on inspection. Breath sounds are clear bilaterally, distant but no rales or rhonchi. HEART: Shows S1, S2 clear. No murmurs auscultated. ABDOMEN: Soft, nontender, nondistended, obese. No palpable organomegaly is noted. BACK: Shows spine grossly in the midline. Normal-appearing cervical lordotic curvature. There is slightly increased thoracic kyphosis, some minor flattening of the lumbar lordotic curvature. Spinal cord stimulator leads were intact clean and dry no erythema no drainage using sterile technique prep and drape the leads were removed sterile bandage was applied. EXTREMITIES: Lower extremities show deep tendon reflexes 1 in the patellar and tendo calcaneus tendons. Motor exam is 4 on a scale of 5 with right dorsiflexion, extension, quadriceps and hamstring flexion and 4/5 on the left. Peripheral pulses are 1+ posterior tibial. No peripheral edema is noted bilaterally. Lower extremities are warm and dry. SKIN: Shows warm and dry, good turgor. No edema. No sores, rashes or bruising throughout. Procedure: Procedure: Options discussed with patient. Patient's old chart was reviewed as her current medication regimen updated current review of systems updated today as well. We will make arrangements with her neurosurgeon for permanent implant and she did very well with the trial. With 90+ percent improvement in her low back and bilateral lower extremity pain. Medication Injected: Med Injected: None Condition at Discharge: Condition at Discharge: Condition at discharge is stable. DALY VERA MD Apr 05, 2021 13:30
== END | disposition home or self-care (01) ==
LOC: PNCL 13:09
PROVIDERS: ATTEND Anesthesiology
DX: M51.16 Intervertebral disc disorders with radiculopathy, lumbar region (principal); M47.27 Other spondylosis with radiculopathy, lumbosacral region; Z79.899 Other long term (current) drug therapy; Z88.5 Allergy status to narcotic agent; Z91.040 Latex allergy status
CPT/HCPCS: 99212; G0463

== ENCOUNTER → 2021-07-08 | Outpatient (CLI) | payer MEDICARE, MEDICAID ==
[2021-07-09 01:09] LABS: HEMOGLOBIN A1C 5.4 % (4.8-5.6)
== END ==
LOC: SURGPAT 13:15
PROVIDERS: ATTEND Neurological Surgery
DX: Z01.812 Encounter for preprocedural laboratory examination (principal); M54.50 Low back pain, unspecified; M79.606 Pain in leg, unspecified; Z45.42 Encounter for adjustment and management of neurostimulator; Z96.82 Presence of neurostimulator; Z79.899 Other long term (current) drug therapy
CPT/HCPCS: 36415; 83036; 87641

== ENCOUNTER 2021-08-16 07:02 | Observation (INO) | payer MEDICARE, MEDICAID ==
[~2021-08-16] VITALS: Ht 167.6 cm; Wt 134.1 kg
[2021-08-16] VITALS (10 sets, daily range): BP systolic 113–138; BP diastolic 69–82
[~2021-08-16 07:02] MED LIST changes: +DEXAMETHASONE SOD PHOS 4 MG/ML VIAL ONE; +HYDROmorphone 2 MG/ML INJ. IVP PRN; +IV RINGERS,LACTATED 1000ML 1,000 ML IV SCH; +LIDOCAINE 2% PF 5 ML VIAL. ONE; +MIDAZOLAM HCL/PF 2 MG/2 ML VIAL. ONE; +ONDANSETRON PF 4 MG/2 ML VIAL. ONE; +PHENYLEPHRINE 10 MG/ML VIAL. ONE; +PROPOFOL 10 MG/ML (20ML) VIAL. IV ONE; +PROPOFOL 50 ML IV ONE; +REMIFENTANIL 2 MG VIAL. IV ONE; +ROCURONIUM 50 MG/5 ML VIAL. ONE; +SEVOFLURANE 61 TO 120 MINUTES. IH ONE; +SUCCINYLCHOLINE 200 MG/10 ML VIAL. ONE; +ceFAZolin SODIUM 3 GM in IV DEXTROSE 5% 100ML 100 ML IV PRN; +fentaNYL PF VIAL 100 MCG/2 ML VIAL IVP PRN; +fentaNYL PF VIAL 100 MCG/2 ML VIAL ONE
[2021-08-16] MEDS ORDERED: THROMBIN TOPICAL 20,000 UNIT SPRAY.SYRN KIT TP ONE (07:08)
[2021-08-16] MEDS ORDERED: GELATIN SPONGE SIZE 100. ONE (07:08)
[2021-08-16] MEDS ORDERED: LIDOCAINE 1%/EPI 1:100,000 20 ML VIAL. ONE (07:08)
[2021-08-16] MEDS ORDERED: BUPIVACAINE MPF 0.5% 30 ML VIAL. ONE (07:08)
[2021-08-16] MEDS ORDERED: IV RINGERS,LACTATED 1000ML 1,000 ML IV SCH (08:00)
[2021-08-16] MEDS ORDERED: PROPOFOL 100 ML IV ONE (08:50)
[2021-08-16] MEDS ORDERED: HYDROmorphone 2 MG/ML INJ. ONE (09:07)
[2021-08-16] MEDS ORDERED: PROPOFOL 10 MG/ML (20ML) VIAL. IV ONE (09:23)
[2021-08-16] MEDS ORDERED: SEVOFLURANE > 120 MINUTES. IH ONE (10:03)
--- NOTE | 2021-08-16 11:54 | PDOC4 ---
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
[2021-08-16] MEDS ORDERED: ONDANSETRON PF 4 MG/2 ML VIAL. IVP PRN (12:00)
[2021-08-16] MEDS ORDERED: IV NORMAL SALINE 1000ML BAG 1,000 ML IV SCH (12:00)
[2021-08-16] MEDS ORDERED: ZOLPIDEM 5 MG TABLET. PO PRN (12:00)
[2021-08-16] MEDS ORDERED: CALCIUM CARBONATE 500 MG TAB.CHEW PO PRN (12:00)
[2021-08-16] MEDS ORDERED: 0.9 % SODIUM CHLORIDE 10 ML DISP.SYRIN. IV PRN (12:00)
[2021-08-16] MEDS ORDERED: ACETAMINOPHEN 325 MG TABLET. PO PRN (12:00)
[2021-08-16] MEDS ORDERED: diphenhydrAMINE 50 MG/ML VIAL IV PRN (12:00)
[2021-08-16] MEDS ORDERED: BISACODYL 10 MG SUPP.RECT. PR PRN (12:00)
[2021-08-16] MEDS ORDERED: MAG HYDROX/ALUMINUM HYD/SIMETH 30 ML ORAL.SUSP PO PRN (12:00)
[2021-08-16] MEDS ORDERED: NALOXONE 0.4 MG/ML VIAL. IV PRN ×2 (12:00)
[2021-08-16] MEDS ORDERED: MAGNESIUM HYDROXIDE 2,400 MG/30 ML ORAL.SUSP. PO PRN (12:00)
[2021-08-16] MEDS ORDERED: fentaNYL PF VIAL 100 MCG/2 ML VIAL IVP PRN ×2 (12:00)
[2021-08-16] MEDS ORDERED: oxyCODONE/APAP 5/325 1 TAB TABLET PO PRN (12:00)
[2021-08-16] MEDS ORDERED: diphenhydrAMINE HCL 25 MG CAPSULE PO PRN (12:00)
[2021-08-16] MEDS ORDERED: fentaNYL PF VIAL 100 MCG/2 ML VIAL ONE (12:37)
[2021-08-16] MEDS: fentaNYL PF VIAL 100 MCG/2 ML VIAL IVP PRN ×2 (12:38→12:53)
[2021-08-16] MEDS ORDERED: PROCHLORPERAZINE 10 MG/2 ML VIAL. ONE (13:15)
[2021-08-16] MEDS ORDERED: MORPHINE SULFATE 2 MG/ML INJ. ONE (13:15)
[2021-08-16] MEDS: PROCHLORPERAZINE 10 MG/2 ML VIAL. IVP PRN ×2 (13:20→13:53)
[2021-08-16] MEDS: MORPHINE SULFATE 2 MG/ML INJ. IVP PRN ×2 (13:22→13:32)
[2021-08-16] MEDS: CALCIUM CARB/VIT D3 500/200 TABLET. PO SCH (17:21)
[2021-08-16] MEDS: FERROUS SULFATE 325 MG TABLET. PO SCH (17:21)
[2021-08-16] MEDS: METHOCARBAMOL 750 MG TABLET PO SCH ×2 (17:21→21:19)
[2021-08-16] MEDS: DOCUSATE SODIUM 100 MG CAPSULE. PO SCH (21:19)
[2021-08-16] MEDS: SENNOSIDES/DOCUSATE 8.6/50MG TABLET. PO SCH (21:19)
[2021-08-16] MEDS: oxyCODONE/APAP 5/325 1 TAB TABLET PO PRN (21:40)
[2021-08-17 03:00] VITALS: BP 104/60
[2021-08-17] MEDS: oxyCODONE/APAP 5/325 1 TAB TABLET PO PRN ×2 (05:44→11:16)
[2021-08-17 07:00] VITALS: BP 126/63
[2021-08-17] MEDS ORDERED: MULTIVITAMIN with MINERAL TABLET. PO SCH (09:00)
[2021-08-17] MEDS: FERROUS SULFATE 325 MG TABLET. PO SCH (09:03)
[2021-08-17] MEDS: DOCUSATE SODIUM 100 MG CAPSULE. PO SCH (09:03)
[2021-08-17] MEDS: METHOCARBAMOL 750 MG TABLET PO SCH (09:03)
[2021-08-17] MEDS: CALCIUM CARB/VIT D3 500/200 TABLET. PO SCH (09:03)
[2021-08-17] MEDS: SENNOSIDES/DOCUSATE 8.6/50MG TABLET. PO SCH (09:04)
--- NOTE | 2021-08-17 10:16 | PDOC ---
Date of Service: DATE: 08/17/21 TIME: 10:14 Progress Note: S: some incisional pain, reports back and leg pain improved with stimulator therapy thus far, working with physical therapy O: AF/VSS, AAOx4, NAD, KHAN 5/5, sensation intact LT, dressings c/d/i, flat A: POD 1 spinal cord stimulator placement P: doing well, d/c home today with standard post-op restrictions, f/u couple weeks [phone] Justifications for Admission Other Justification KYLEIGH SHEPPARD MD Aug 17, 2021 10:16
[2021-08-17] MEDS ORDERED: METH-562 PO (10:24)
[2021-08-17] MEDS ORDERED: OXYC1TAB15 PO (10:24)
[2021-08-17] MEDS ORDERED: SENN-209 PO (10:24)
[2021-08-17 11:00] VITALS: BP 119/76
--- NOTE | 2021-08-17 11:52 | NUR ---
Pt DC home in stable condition with belongings per wheelchair accompanied by family. SL removed, cath intact. Discharge instructions and medications reviewed. Denies having questions. F/U information given.
--- NOTE | 2021-08-23 11:13 | OP ---
DATE OF SURGERY: 08/16/2021 SURGEON: Vinny Kidd MD STOVE FITTER: None. ANESTHESIA: General. COMPLICATIONS: None. INDICATIONS FOR THE PROCEDURE: The patient is a 46-year-old female who had a successful spinal cord stimulator trial for low back and leg pain. She presents for placement of a permanent dorsal column stimulator system. Please refer to the patient's chart for additional detail. DESCRIPTION OF PROCEDURE: After informed consent was obtained, the patient was brought into the operating room. She was placed under general anesthesia. She was placed in the prone position. All pressure points were checked and padded appropriately. Fluoroscopy was utilized to localize an appropriate incision location centered over the region of thoracic 9. Vertical incision was made over this region. Monopolar electrocautery was utilized to dissect the avascular midline to the spinous process of thoracic 9 and bilaterally across the lamina at this location. Level was again verified with fluoroscopy prior to the initiation of laminectomy. Bilateral laminectomy was performed at thoracic 9 with a Le[place]ell as well as Kerrison rongeurs. Once this was complete, a paddle lead was instituted into the epidural space extending up to the region of T8 and just the bottom of T7. This was verified with fluoroscopy and was noted to be in good position, well in the midline. Anchors were instituted on the wires and secured to the adjacent fascia with silk suture. Appropriate sized incision was then made in the right flank with a 10 blade scalpel. Monopolar electrocautery was utilized to dissect the underlying soft tissues and blunt dissection techniques were utilized to create a pocket of an appropriate size for the intermittent pulse generator. The included tunneler was instituted to create a trajectory from the thoracic incision to the right flank incision. The trocar was removed and the tubing was utilized to pass the wires from the thoracic incision to the region of the right flank incision. The intermittent pulse generator was attached and secured according to snag grinder's specifications and placed into the pocket with good anatomical contour. This was secured to the underlying tissue with silk sutures. Impedances were noted to be normal. Wounds were generously irrigated with antibiotic irrigation prior to the final closure. Pristine hemostasis was achieved with FloSeal, cottonoids, and some use of bipolar electrocautery. The neuromonitoring motor and somatosensory potentials remained at baseline throughout the entirety of the procedure. The muscles and fascia of the thoracic incision were closed with 0 Vicryl in a simple interrupted fashion. The subcutaneous tissues were reapproximated with 2-0 Vicryl in interrupted inverted fashion. The skin was reapproximated with 4-0 Vicryl in a running subcuticular fashion. Mastisol and Steri-Strips were applied and the wound was dressed with Telfa, 4 x 4's, and Tegaderm. The capsule was closed in the right flank incision over the intermittent pulse generator with 0 Vicryl. The subcutaneous tissues were reapproximated with 2-0 Vicryl in interrupted inverted fashion. The skin was reapproximated with 4-0 Vicryl in a running subcuticular fashion. Mastisol and Steri-Strips were applied. Wound was dressed with Telfa, 4 x 4's, and Tegaderm. At the end of the procedure, all needle and sponge counts were correct x2. The patient was extubated in the operating room and taken to recovery in stable condition. There were no intraprocedural complications apparent. MARLEN DR: Rand TID: [id number] RORY
== END 2021-08-17 10:20 | disposition home or self-care (01) ==
LOC: SURG 07:02 → 4 NORTH 11:54
PROVIDERS: ADMIT Neurological Surgery; ATTEND Neurological Surgery
DX: M54.6 Pain in thoracic spine (principal); Z20.822 Contact with and (suspected) exposure to COVID-19; M79.606 Pain in leg, unspecified
CPT/HCPCS: 63655; 63685; 97116; 97162; 97166; 97530; 97535; A4209; A4213; A4364; A4556; A4930; A6254; A6257; A6258; A6402; C1767; C1778; G0378; G0379; J0780; J1100; J1170; J2250; J2270; J2370; J2405; J2704; J3010; J3490; 76000; A4222; A4452; C1787; J0330